=== PATIENT | male | born 1985 | race Hispanic/Latino ===

== ENCOUNTER 2017-11-25 14:49 | Emergency (ER) | payer MEDICAID, OTHER, SELFPAY ==
[2017-11-25 14:49] VITALS: BMI 18.1
[2017-11-25 15:03] VITALS: RESP 16
--- NOTE | 2017-11-25 15:50 | ED PDOC ---
HPI: Abdomen Time Seen by Provider: 11/25/17 15:15 Chief Complaint (Nursing): Abdominal Pain Chief Complaint (Provider): Abdominal Pain History Per: Patient History/Exam Limitations: no limitations Onset/Duration Of Symptoms: Days (x3) Current Symptoms Are (Timing): Still Present Quality Of Discomfort: "Pain" Associated Symptoms: Nausea, Loss Of Appetite Last Bowel Movement: Days Ago (3) Additional Complaint(s): 32 y/o male with no significant PMHx presents to the ED complaining of abdominal pain associated with nausea and decreased appetite, onset yesterday. Patient reports last bowel movement was 3 days ago. Patient also reports of similar symptoms as a child. PMD: No Provider Past Medical History Reviewed: Historical Data, Nursing Documentation, Vital Signs Vital Signs: Last Vital Signs Temp 97.9 F 11/25/17 20:10 Pulse 81 11/25/17 20:10 Resp 16 11/25/17 20:10 BP 131/78 11/25/17 20:10 Pulse Ox 100 11/25/17 20:10 - Medical History PMH: No Chronic Diseases Denies: Chronic Kidney Disease - Surgical History Surgical History: Tonsillectomy Denies: Appendectomy, Cholecystectomy - Family History Family History: States: Unknown Family Hx - Social History Current smoker - smoking cessation education provided: No Alcohol: None - Home Medications Home Medications: Ambulatory Orders Medication Instructions Recorded Amphetamine Salt Combination 5 mg PO DAILY 10/05/15 [Adderall] Oxycodone HCl [Roxicodone] 30 mg PO Q4 PRN 10/30/15 Oxycodone HCl/Acetaminophen 5 - 325 mg PO Q4 PRN 10/30/15 [Percocet 5-325 mg Tablet] Polyethylene Glycol 3350 [Miralax] 1 tbs PO DAILY PRN #1 bottle 11/25/17 - Allergies Allergies/Adverse Reactions: Allergies Allergy/AdvReac Type Severity Reaction Status Date / Time No Known Allergies Allergy Verified 10/05/15 22:37 Review of Systems ROS Statement: Except As Marked, All Systems Reviewed And Found Negative Gastrointestinal: Positive for: Nausea, Abdominal Pain, Other (Decreased Appetite) Physical Exam - Reviewed Nursing Documentation Reviewed: Yes Vital Signs Reviewed: Yes - Physical Exam Appears: Positive for: In Acute Distress (Mild, painful) Head Exam: Positive for: ATRAUMATIC, NORMOCEPHALIC Skin: Positive for: Normal Color, Warm, Dry Eye Exam: Positive for: Normal appearance, EOMI, PERRL Neck: Positive for: Normal, Painless ROM Cardiovascular/Chest: Positive for: Regular Rate, Rhythm. Negative for: Murmur Respiratory: Positive for: Normal Breath Sounds. Negative for: Respiratory Distress Gastrointestinal/Abdominal: Positive for: Normal Exam, Tenderness (mild left upper quadrant and left lower quadrant tenderness). Negative for: Guarding, Rebound Back: Positive for: Normal Inspection. Negative for: L CVA Tenderness, R CVA Tenderness, Vertebral Tenderness Extremity: Positive for: Normal ROM. Negative for: Pedal Edema, Deformity Neurologic/Psych: Positive for: Alert, Oriented. Negative for: Motor/Sensory Deficits - Laboratory Results Result Diagrams: 11/25/17 16:45 11/25/17 16:45 - ECG O2 Sat by Pulse Oximetry: 97 (RA) Pulse Ox Interpretation: Normal Medical Decision Making Medical Decision Making: Time: 1551 Impression: Abdominal Pain and Constipation Plan: -- CT Abd/Pelvis IV Contrast -- CMP -- ED Urine Dipstick -- CBC with differentials Accession No. : [id number] Patient Name / ID : SALAZAR MALHOTRA / [id number] Exam Date : 11/25/2017 18:12:28 ( Approved ) Study Comment : Sex / Age : M / 32Y Creator : Delmer Lema MD Dictator : Acquisition Manager : Field Application Engineer : Delmer Lema MD Approver2 : Report Date : 11/25/2017 18:51:47 My Comment : Date of service: 11/25/2017 PROCEDURE: CT Abdomen and Pelvis with contrast HISTORY: LUQ/LLQ pain, constipation COMPARISON: None. TECHNIQUE: Contiguous helical/ transaxial sections of the abdomen pelvis performed in standard fashion following intravenous injection of approximately 95 cc Omnipaque 300 contrast material. Additional 2 dimensional sagittal and coronal reformats provided. Radiation dose: Total exam DLP = 767.32 mGy-cm. This CT exam was performed using one or more of the following dose reduction techniques: Automated exposure control, adjustment of the mA and/or kV according to patient size, and/or use of iterative reconstruction technique. FINDINGS: LOWER THORAX: Mild passive/dependent type atelectasis both posterior sulci. Lung bases are otherwise clear. No infiltrate effusion or basilar pneumothorax. Heart size within range of normal. There is a small hiatal hernia. LIVER: Limits upper limits of normal measuring over 18 cm in CC dimension. No obvious hepatic mass collection or calcification. Portal and splenic veins are opacified. . GALLBLADDER AND BILE DUCTS: Gallbladder physiologically distended. No evidence of intraluminal gallbladder calculi. . PANCREAS: Unremarkable. No gross lesion or ductal dilatation. SPLEEN: Spleen is mildly enlarged measuring nearly 14 cm in AP dimension. Small splenule is present within the splenic hilum adjacent to the main body of the spleen ADRENALS: No adrenal lesions. KIDNEYS AND URETERS: Kidneys demonstrate relatively symmetric size and nephrograms. Note is made of a small calcification within the left aspect of the pelvis felt to represent a calcified pelvic phlebolith. Correlation with urinalysis recommended. . VASCULATURE: Unremarkable. No aortic aneurysm. BOWEL: Stomach is incompletely distended which presumably accounts for thick-walled appearance. Evaluation of the bowel is limited due to the lack of oral contrast material. Visualized loops of small bowel exhibit normal contour and caliber. No evidence of acute mechanical small bowel obstruction. Moderate amount of stool seen within the cecum at ascending and to a lesser degree proximal transverse colon consistent with mild fecal retention/ constipation. There appears to be a few scattered colonic diverticula seen along the sigmoid colon however no radiographic evidence of acute diverticulitis. No definitive evidence of abnormal mural wall thickening. There does APPENDIX: What probably represents normal appendix best seen on coronal image number [id number] and axial image number [id number]. PERITONEUM: No free or loculated fluid collections. No evidence of free intraperitoneal air. What probably represents a normal LYMPH NODES: Unremarkable. No enlarged lymph nodes. BLADDER: Urinary bladder incompletely distended which in part accounts for thick-walled appearance. Muscular hypertrophy presumably contributes. Note the possibility of a cystitis not excluded. Clinical correlation with urinalysis recommended. REPRODUCTIVE: Prostate gland and seminal vesicles unremarkable. BONES: Vertebral bodies exhibit normal stature and alignment. No acute compression fractures. OTHER FINDINGS: None. IMPRESSION: Mild splenomegaly. Findings suggest mild localized constipation right colon as described. Urinary bladder incompletely distended which in part accounts for thick-walled appearance. Muscular hypertrophy presumably contributes. Possibility of a cystitis not excluded. Scribe Attestation: Documented by Kathryn Brown acting as a scribe for Dr. Thea Khalil MD. Provider Scribe Attestation: All medical record entries made by the Scribe were at my direction and personally dictated by me. I have reviewed the chart and agree that the record accurately reflects my personal performance of the history, physical exam, medical decision making, and the department course for this patient. I have also personally directed, reviewed, and agree with the discharge instructions and disposition. Disposition - Clinical Impression Clinical Impression: Abdominal pain, Constipation - Disposition Referrals: [facility] [Outside] Disposition: Routine/Home Disposition Time: 19:39 Condition: STABLE Prescriptions: Polyethylene Glycol 3350 [Miralax] 1 tbs PO DAILY PRN #1 bottle PRN Reason: Constipation Instructions: Constipation in Adults, Acute Abdomen (Belly Pain) Forms: [facility] (Macedonian)
[2017-11-25] MEDS ORDERED: Sodium Chloride 0.9% 1,000 ML IV STA (15:51)
[2017-11-25 17:08] LABS: BASO % 0.2 % (0.0-2.0); EOS % 0.8 % (0.0-4.0); HEMOGLOBIN 13.4 g/dL (12.0-18.0); LYMPH # 0.7 K/uL (1.0-4.3); LYMPH % 12.7 % (20.0-40.0); MEAN CELL VOLUME 83.1 fl (80.0-94.0); MEAN CORPUSCULAR HEMOGLOBIN 28.1 pg (27.0-31.0); MEAN CORPUSCULAR HGB CONC 33.9 g/dL (33.0-37.0); MEAN PLATELET VOLUME 7.8 fl (7.2-11.7); MONO # 0.4 K/uL (0.0-0.8); NEUT # 4.4 K/uL (1.8-7.0); NEUT % 78.3 % (50.0-75.0); RBC 4.77 Mil/uL (4.40-5.90); RED CELL DISTRIBUTION WIDTH 13.3 % (11.5-14.5); WHITE BLOOD COUNT 5.6 K/uL (4.8-10.8)
[2017-11-25 17:10] LABS: URINE BACTERIA RARE (<OCC); URINE BILIRUBIN NEGATIVE (NEGATIVE); URINE BLOOD NEGATIVE (NEGATIVE); URINE CLARITY SLIGHTY-CLOUDY (Clear); URINE COLOR YELLOW (YELLOW); URINE GLUCOSE (UA) NEG (Normal); URINE LEUKOCYTE ESTERASE NEG Leu/uL (Negative); URINE PROTEIN 30 mg/dL (NEGATIVE)
[2017-11-25 17:15] LABS: ALB/GLOB RATIO 1.2 (1.0-2.1); ALBUMIN 4.4 g/dL (3.5-5.0); ALT/SGPT 36 U/L (21-72); AST/SGOT 25 U/L (17-59); BLOOD UREA NITROGEN 4 mg/dl (9-20); CALCIUM 9.6 mg/dL (8.4-10.2); GFR NON-AFRICAN AMERICAN > 60
[2017-11-25 17:15] LABS: PARTIAL THROMBOPLASTIN TIME 35.7 Seconds (25.6-37.1)
[2017-11-25] MEDS ORDERED: Sodium Chloride 0.9% 50 ML IV ONE (17:28)
[2017-11-25] MEDS ORDERED: Iohexol 300 100 ML IJ ONE (17:28)
--- NOTE | 2017-11-25 18:53 | CT ---
Date of service: 11/25/2017 PROCEDURE: CT Abdomen and Pelvis with contrast HISTORY: LUQ/LLQ pain, constipation COMPARISON: None. TECHNIQUE: Contiguous helical/ transaxial sections of the abdomen pelvis performed in standard fashion following intravenous injection of approximately 95 cc Omnipaque 300 contrast material. Additional 2 dimensional sagittal and coronal reformats provided. Radiation dose: Total exam DLP = 767.32 mGy-cm. This CT exam was performed using one or more of the following dose reduction techniques: Automated exposure control, adjustment of the mA and/or kV according to patient size, and/or use of iterative reconstruction technique. FINDINGS: LOWER THORAX: Mild passive/dependent type atelectasis both posterior sulci. Lung bases are otherwise clear. No infiltrate effusion or basilar pneumothorax. Heart size within range of normal. There is a small hiatal hernia. LIVER: Limits upper limits of normal measuring over 18 cm in CC dimension. No obvious hepatic mass collection or calcification. Portal and splenic veins are opacified. . GALLBLADDER AND BILE DUCTS: Gallbladder physiologically distended. No evidence of intraluminal gallbladder calculi. . PANCREAS: Unremarkable. No gross lesion or ductal dilatation. SPLEEN: Spleen is mildly enlarged measuring nearly 14 cm in AP dimension. Small splenule is present within the splenic hilum adjacent to the main body of the spleen ADRENALS: No adrenal lesions. KIDNEYS AND URETERS: Kidneys demonstrate relatively symmetric size and nephrograms. Note is made of a small calcification within the left aspect of the pelvis felt to represent a calcified pelvic phlebolith. Correlation with urinalysis recommended. . VASCULATURE: Unremarkable. No aortic aneurysm. BOWEL: Stomach is incompletely distended which presumably accounts for thick-walled appearance. Evaluation of the bowel is limited due to the lack of oral contrast material. Visualized loops of small bowel exhibit normal contour and caliber. No evidence of acute mechanical small bowel obstruction. Moderate amount of stool seen within the cecum at ascending and to a lesser degree proximal transverse colon consistent with mild fecal retention/constipation. There appears to be a few scattered colonic diverticula seen along the sigmoid colon however no radiographic evidence of acute diverticulitis. No definitive evidence of abnormal mural wall thickening. There does APPENDIX: What probably represents normal appendix best seen on coronal image number [id number] and axial image number [id number]. PERITONEUM: No free or loculated fluid collections. No evidence of free intraperitoneal air. What probably represents a normal LYMPH NODES: Unremarkable. No enlarged lymph nodes. BLADDER: Urinary bladder incompletely distended which in part accounts for thick-walled appearance. Muscular hypertrophy presumably contributes. Note the possibility of a cystitis not excluded. Clinical correlation with urinalysis recommended. REPRODUCTIVE: Prostate gland and seminal vesicles unremarkable. BONES: Vertebral bodies exhibit normal stature and alignment. No acute compression fractures. OTHER FINDINGS: None. IMPRESSION: Mild splenomegaly. Findings suggest mild localized constipation right colon as described. Urinary bladder incompletely distended which in part accounts for thick-walled appearance. Muscular hypertrophy presumably contributes. Possibility of a cystitis not excluded.
[2017-11-25 18:54] LABS: INR 1.3; PROTHROMBIN TIME 14.7 Seconds (9.8-13.1)
[2017-11-25] MEDS ORDERED: Potassium Chloride 20 mEq ER Tab PO STA (19:08)
[2017-11-25] MEDS ORDERED: Potassium Chloride 20 mEq ER Tab PO ONE (19:40)
[2017-11-25 20:12] VITALS: BP 131/78; PULSE 81; TEMP 97.9
[2017-11-26 15:49] VITALS: O2SAT 97
== END 2017-11-25 20:12 | disposition home or self-care (01) ==
LOC: H.ER 14:49
DX: R10.9 Unspecified abdominal pain (principal); K59.00 Constipation, unspecified
CPT/HCPCS: 74177; 80053; 81003; 85025; 85610; 85730; 99283; J2270; J2405; J7030; Q9967

== ENCOUNTER 2017-11-26 20:17 | Emergency (ER) | payer MEDICAID, OTHER ==
[2017-11-26 20:17] VITALS: BMI 18.1
--- NOTE | 2017-11-26 21:49 | ED PDOC ---
HPI: Wound Care - HPI Time Seen by Provider: 11/26/17 20:58 Chief Complaint (Nursing): Abnormal Skin Integrity History Per: Patient Additional Complaint(s): 32 yo M sustained a laceration to the R lower ear from an umbrella that was being waved around near him, incident occurred at 6pm today. Reports no head injury, and no other lacerations or injuries. Past Medical History Vital Signs: Last Vital Signs Temp 98.4 F 11/26/17 20:48 Pulse 105 H 11/26/17 20:48 Resp 18 11/26/17 20:48 BP 125/83 11/26/17 20:48 Pulse Ox 95 11/26/17 20:48 - Medical History PMH: Denies: Chronic Kidney Disease - Surgical History Surgical History: Tonsillectomy Denies: Appendectomy, Cholecystectomy - Family History Family History: States: Unknown Family Hx - Home Medications Home Medications: Ambulatory Orders Medication Instructions Recorded Amphetamine Salt Combination 5 mg PO DAILY 10/05/15 [Adderall] Oxycodone HCl [Roxicodone] 30 mg PO Q4 PRN 10/30/15 Oxycodone HCl/Acetaminophen 5 - 325 mg PO Q4 PRN 10/30/15 [Percocet 5-325 mg Tablet] Polyethylene Glycol 3350 [Miralax] 1 tbs PO DAILY PRN #1 bottle 11/25/17 - Allergies Allergies/Adverse Reactions: Allergies Allergy/AdvReac Type Severity Reaction Status Date / Time No Known Allergies Allergy Verified 10/05/15 22:37 Review of Systems Constitutional: Negative for: Fever, Malaise ENT: Positive for: Other (R ear laceration). Negative for: Ear Discharge, Nose Discharge Respiratory: Negative for: Cough Skin: Negative for: Rash, Lesions Neurological: Negative for: Headache, Dizziness Physical Exam - Reviewed Vital Signs Reviewed: Yes - Physical Exam Appears: Positive for: Well, Non-toxic, No Acute Distress Head Exam: Positive for: ATRAUMATIC, NORMAL INSPECTION, NORMOCEPHALIC Skin: Positive for: Normal Color, Warm, Dry. Negative for: Rash Eye Exam: Positive for: Normal appearance, EOMI, PERRL ENT: Positive for: Other (+T shaped laceration to the lower R ear ~2 cm in size) Neck: Positive for: Normal, Painless ROM, Supple Neurologic/Psych: Positive for: Alert, skoog machine operator II-XII (intact), Oriented (x3). Negative for: Motor/Sensory Deficits - ECG O2 Sat by Pulse Oximetry: 95 Procedure: Wound Repair - Time Performed Time Performed: 21:45 - Time Out Time Out: Side verified, Site verified, Patient ID confirmed - Consent Obtained Consent obtained: Verbal - Performed by Performed by: Mid-level Provider - Indications Indication(s):: Laceration - Location Location:: Right (ear) Shape:: Other (T shape) Depth:: Epidermis - Anesthetic Technique Anesthetic Technique: Local Local/Regional Anesthetic:: Lidocaine 1% - Wound Examination Wound Examination:: Other (clean) - Debris Debris:: None - Irrigated Irrigated with ml of normal saline: 50 - Complexity Complexity:: Simple (one layer) - Wound repair method Sutures:: # (3), Size (5-0 ethilon) - Complications Complications: none - Patient tolerated procedure Patient Tolerated Procedure:: Well (clean dressing applied) Medical Decision Making Medical Decision Making: Plan : - Laceration repair - Tdap IM Patient instructed to follow-up with the clinic in 1-2 days without fail for wound check, have sutures removed after 7 days. Return to the emergency room at any time for any new or worsening symptoms. Patient states he fully agrees with and understands discharge instructions. States that he agrees with the plan and disposition. Verbalized and repeated discharge instructions and plan. I have given the patient opportunity to ask any additional questions. Disposition - Clinical Impression Clinical Impression: Laceration of right ear - Patient ED Disposition Is Patient to be Admitted: No Counseled Patient/Family Regarding: Diagnosis, Need For Followup - Disposition Referrals: [facility] [Outside] Disposition: Routine/Home Disposition Time: 22:00 Condition: STABLE Additional Instructions: Thank you for letting us take care of you today. You were treated for R ear laceration. The emergency medical care you received today was directed towards the acute presenting symptoms. Clean wound daily with regular soap and water, have sutures removed after 7 days. Return to the Emergency Department at any time if symptoms worsen, do not improve, or if any other problems arise. Please call one of the physicians/clinics you have been referred to that are listed on the Patient Visit Information form that is included in your discharge packet. Bring any paperwork you were given at discharge with you along with any medications to your follow up visit. Our treatment cannot replace ongoing medical care by a primary care provider (PCP) outside of the emergency department. Thank you for allowing the [facility] team to be part of your care today. Instructions: Wound Care (DC), Laceration Repair With Stitches (DC) - PA / BUSINESS WRITER / Resident Statement MD/DO has reviewed & agrees with the documentation as recorded.
[2017-11-26] MEDS ORDERED: Tdap Vaccine 0.5 ml Vial (10-64 yrs) IM ONE ×2 (21:53→22:43)
[2017-11-26 23:31] VITALS: BP 133/85; PULSE 92; RESP 14; TEMP 98.2; O2SAT 100
== END 2017-11-26 22:50 | disposition home or self-care (01) ==
LOC: H.ER 20:17
DX: S01.311A Laceration without foreign body of right ear, initial encounter (principal); W26.8XXA Contact with other sharp object(s), not elsewhere classified, initial encounter; Y92.89 Other specified places as the place of occurrence of the external cause

== ENCOUNTER 2017-12-03 00:14 | Emergency (ER) | payer MEDICAID, OTHER ==
[2017-12-03 00:14] VITALS: BMI 18.1
[2017-12-03 00:35] VITALS: BP 119/69; PULSE 88; RESP 16; TEMP 97.9; O2SAT 98
--- NOTE | 2017-12-03 00:53 | ED PDOC ---
HPI: Wound Care - HPI Time Seen by Provider: 12/03/17 00:25 Chief Complaint (Nursing): Suture/Staple Removal History Per: Patient History Of Present Illness: Patient presented with suture removal for laceration sustained 9 days ago after injuring ear on umbrella. No drainage, erythema, swelling. Exam Limitations: no limitations Past Medical History Reviewed: Historical Data, Nursing Documentation, Vital Signs Vital Signs: Last Vital Signs Temp 97.9 F 12/03/17 00:33 Pulse 88 12/03/17 00:33 Resp 16 12/03/17 00:33 BP 119/69 12/03/17 00:33 Pulse Ox 98 12/03/17 00:33 - Medical History PMH: No Chronic Diseases Denies: Chronic Kidney Disease - Surgical History Surgical History: Tonsillectomy Denies: Appendectomy, Cholecystectomy - Family History Family History: States: Unknown Family Hx - Home Medications Home Medications: Ambulatory Orders Medication Instructions Recorded Amphetamine Salt Combination 5 mg PO DAILY 10/05/15 [Adderall] Oxycodone HCl [Roxicodone] 30 mg PO Q4 PRN 10/30/15 Oxycodone HCl/Acetaminophen 5 - 325 mg PO Q4 PRN 10/30/15 [Percocet 5-325 mg Tablet] Polyethylene Glycol 3350 [Miralax] 1 tbs PO DAILY PRN #1 bottle 11/25/17 - Allergies Allergies/Adverse Reactions: Allergies Allergy/AdvReac Type Severity Reaction Status Date / Time No Known Allergies Allergy Verified 10/05/15 22:37 Review of Systems ROS Statement: Except As Marked, All Systems Reviewed And Found Negative Physical Exam - Reviewed Nursing Documentation Reviewed: Yes Vital Signs Reviewed: Yes - Physical Exam Appears: Positive for: Well, Non-toxic, No Acute Distress ENT: Positive for: Other (3 well healing sutures in scapha of ear) - ECG O2 Sat by Pulse Oximetry: 98 Pulse Ox Interpretation: Normal Medical Decision Making Medical Decision Making: Sutures removed by me without incident. Disposition - Clinical Impression Clinical Impression: Removal of suture - Disposition Referrals: [facility] [Outside] Disposition: Routine/Home Disposition Time: 00:54 Condition: STABLE Instructions: Stitches Removal Forms: [facility] ([place])
== END 2017-12-03 01:08 | disposition home or self-care (01) ==
LOC: H.ER 00:14
DX: Z48.02 Encounter for removal of sutures (principal)